=== PATIENT | male | born 1990 | race Caucasian/White ===

== ENCOUNTER 2023-09-25 20:44 | Emergency (ER) | payer SELFPAY ==
[~2023-09-25] VITALS: Ht 170.2 cm; Wt 90.7 kg
[2023-09-25 21:40] VITALS: BP 145/90; TEMP 98.1
[2023-09-25 22:29] VITALS: O2SAT 98
== END 2023-09-25 22:36 | disposition home or self-care (01) ==
LOC: ER 20:49
DX: F41.9 Anxiety disorder, unspecified (principal); Z60.2 Problems related to living alone